=== PATIENT | female | born 1985 | race African-American/Black ===

== ENCOUNTER 2017-01-14 08:24 | Inpatient (IN) | payer MEDICAID ==
[2017-01-14] VITALS (22 sets, daily range): BP systolic 129–149; BP diastolic 52–87; PULSE 76–94; RESP 17–23; TEMP 98.7–99.2; O2SAT 97–100
[~2017-01-14] VITALS: Ht 162.6 cm; Wt 59.3 kg
[~2017-01-14 08:24] MED LIST: BENZ100 PO; CIPR500T4 PO; ZOFR4TAB3 PO
[2017-01-14] MEDS ORDERED: SODIUM CHLOR 0.9% 1000 ML INJ 1,000 ML IV ONE (08:28)
[2017-01-14 08:30] LABS: MEAN CORPUSCULAR HGB CONC 29.3 % (32.0-36.0)
[2017-01-14 08:39] LABS: I-STAT POTASSIUM 3.9 MMOL/L (3.5-4.9); I-STAT SODIUM 141 MMOL/L (138-146)
[2017-01-14 08:41] LABS: AUTOMATED NEUTROPHIL # 2.1 TH/MM3 (1.8-7.7); BASOPHIL # 0.1 TH/MM3 (0-0.2); BASOPHIL % 1.4 % (0.0-2.0); EOSINOPHIL % 1.1 % (0.0-4.0); HEMATOCRIT 23.8 % (35.0-46.0); HEMO FLAGS DIFF FINAL; LYMPH % 29.3 % (9.0-44.0); LYMPHOCYTE # 1.2 TH/MM3 (1.0-4.8); MEAN CELL VOLUME 60.2 FL (80.0-100.0); MEAN CORPUSCULAR HEMOGLOBIN 17.7 PG (27.0-34.0); MONO % 14.4 % (0.0-8.0); NEUT % 53.8 % (16.0-70.0); PLATELET COUNT 753 TH/MM3 (150-450); RED BLOOD COUNT 3.96 MIL/MM3 (4.00-5.30); RED CELL DISTRIBUTION WIDTH 24.8 % (11.6-17.2)
--- NOTE | 2017-01-14 08:41 | RADRPT ---
EXAM DATE/TIME: 01/14/2017 08:31 [facility] COMPARISON: No previous studies available for comparison. INDICATIONS : Stroke alert, right sided weakness and slurred speech. RADIATION DOSE: 29.05 CTDIvol (mGy) This report was to Dr. Chaparro at 08 35. MEDICAL HISTORY : Non-responsive. SURGICAL HISTORY : Non-responsive. ENCOUNTER: Initial ACUITY: 1 day PAIN SCALE: 0/10 LOCATION: cranial TECHNIQUE: Multiple contiguous axial images were obtained of the head. Using automated exposure control and adj ustment of the mA and/or kV according to patient size, radiation dose was kept as low as reasonably a chievable to obtain optimal diagnostic quality images. DICOM format image data is available electro nically for review and comparison. FINDINGS: CEREBRUM: The ventricles are normal for age. No evidence of midline shift, mass lesion, hemorrhage or acute in farction. No extra-axial fluid collections are seen. POSTERIOR FOSSA: The cerebellum and brainstem are intact. The 4th ventricle is midline. The cerebellopontine angle i s unremarkable. EXTRACRANIAL: The visualized portion of the orbits is intact. SKULL: The calvaria is intact. No evidence of skull fracture. CONCLUSION: Negative for acute process. Antione Yan MD FACR on January 14, 2017 at 8:38 Board Certified Radiologist. This report was verified electronically.
--- NOTE | 2017-01-14 08:43 | PD ---
HPI Chief Complaint: stroke alert Time Seen by Provider: 08:28 Travel History International Travel<30 days: No Contact w/Intl Traveler<30days: No Traveled to known affect area: No History of Present Illness HPI 32-year-old female complains of slurred speech and right arm weakness. Patient was last seen normal at 7:30 this morning. EMS was called this morning around 8 :00. Patient complains of slow speech and right arm weakness at that time. Patient states that she has mild aching headache. Patient denies any visual change. Patient denies any neck pain. Patient denies any chest pain or shortness of breath. Patient states that she has some mild discomfort normal abdomen. Patient denies any back pain. Patient denies any recent injury. Patient is not on control pills. Patient denies any recent travel. Patient denies any history of TIA or CVA. Patient denies any history of arrhythmia. Patient states that she smokes marijuana occasionally. Patient denies any alcohol abuse. Patient denies any other illicit drug abuse. PFSH Past Medical History Anemia: Yes (with ) Blood Disorders: No Cardiovascular Problems: No Endocrine: No Gastrointestinal Disorders: No Genitourinary: No Immune Disorder: No Implanted Vascular Access Dvce: No Musculoskeletal: No Neurologic: No Psychiatric: No Reproductive: No Respiratory: No Immunizations Current: Yes : 6 Para: 4 Miscarriage: 1 Past Surgical History Abdominal Surgery: No Cardiac Surgery: No Section: Yes (x3) Ear Surgery: No Endocrine Surgery: No Eye Surgery: No Genitourinary Surgery: No Gynecologic Surgery: Yes (C SECTION X,S 3) Oral Surgery: No Thoracic Surgery: No Other Surgery: Yes Social History Alcohol Use: No Tobacco Use: No Substance Use: No Allergies-Medications (Allergen,Severity, Reaction): Coded Allergies: No Known Allergies (Verified , 11/05/14) Reported Meds & Prescriptions Reported Meds & Active Scripts Active Zofran ODT (Ondansetron HCl) 4 Mg Tab 4 Mg PO Q6HR PRN Tessalon Perles (Benzonatate) 100 Mg Cap 100 Mg PO TID PRN Cipro (Ciprofloxacin HCl) 500 Mg Tab 500 Mg PO BID 7 Days Review of Systems General / Constitutional: No: Fever Eyes: No: Visual changes HENT: No: Headaches Cardiovascular: No: Chest Pain or Discomfort Respiratory: No: Shortness of Breath Gastrointestinal: No: Abdominal Pain Genitourinary: No: Dysuria Musculoskeletal: No: Pain Skin: No Rash Neurologic: Positive: Weakness, Slurred Speech Psychiatric: No: Depression Endocrine: No: Polydipsia Hematologic/Lymphatic: No: Easy Bruising Physical Exam Narrative GENERAL: Well-nourished, well-developed patient. SKIN: Focused skin assessment warm/dry. HEAD: Normocephalic. EYES: No scleral icterus. No injection or drainage. Pupils 3 mm equal reactive. NECK: Supple, trachea midline. No JVD or lymphadenopathy. CARDIOVASCULAR: Regular rate and rhythm without murmurs, gallops, or rubs. RESPIRATORY: Breath sounds equal bilaterally. No accessory muscle use. GASTROINTESTINAL: Abdomen soft, non-tender, nondistended. MUSCULOSKELETAL: No cyanosis, or edema. BACK: Nontender without obvious deformity. No CVA tenderness. Neurologic exam: Patient has slurred speech. Patient has weakness of the right arm. Patient can minimally elevated right arm off the bed. Weak handgrip. Lower extremity strength bilaterally equal. Deep tendon reflexes 1+ and equal. Negative Babinski. Data Data Last Documented VS Vital Signs Date Time Temp Pulse Resp B/P Pulse Ox O2 Delivery O2 Flow Rate FiO2 01/14/17 08:49 19 100 Room Air 01/14/17 08:43 98.7 81 130/80 01/14/17 08:23 3.00 Orders Diet Npo (01/14/17 Breakfast) Activity Bed Rest (01/14/17 ) Electrocardiogram (01/14/17 ) I-Stat Creatinine (01/14/17 08:28) I-Stat Profile (01/14/17 08:28) Prothrombin Time / Inr (Pt) (01/14/17 08:28) Act Partial Throm Time (Ptt) (01/14/17 08:28) Complete Blood Count With Diff (01/14/17 08:28) Fibrinogen (01/14/17 08:28) Creatine Kinase (Cpk) (01/14/17 08:28) Troponin I (01/14/17 08:28) Ua Includes Microscopic (01/14/17 08:28) Drug Screen, Random Urine (01/14/17 08:28) Type And Screen (01/14/17 08:28) Ct Brain W/O Iv Contrast(Rout) (01/14/17 ) Chest, Single Ap (01/14/17 ) Beta Hcg (Quant/Titer) (01/14/17 08:28) Consult Neurology (01/14/17 ) Blood Glucose (01/14/17 08:28) Ecg Monitoring (01/14/17 08:28) Neuro Checks Q2HX12,Q4H (01/14/17 08:28) Nursing Bedside Swallow Assess .ONCE (01/14/17 08:28) Iv Access Insert/Monitor (01/14/17 08:28) NPO (01/14/17 08:28) Oximetry (01/14/17 08:28) Oxygen Administration (01/14/17 08:28) Sodium Chlor 0.9% 1000 Ml Inj (Ns 1000 M (01/14/17 08:28) Resp Oxygen Casper C Titrat 1-4 L (01/14/17 08:28) Cath For Specimen (01/14/17 08:28) Cta Brain W Iv Contrast W 3d (01/14/17 ) Cta Neck W Iv Contrast W 3d (01/14/17 ) (Hub Use Only)Inp Phy Cons/Ref (01/14/17 ) Mri Brain W/O Contrast (01/14/17 08:40) Mra Brain W/O Contrast (Cow) (01/14/17 08:40) Mra Carotids W Contrast (01/14/17 08:40) ^ Call Pharmacy (01/14/17 08:52) Nih Stroke Scale - Nihss .ONCE (01/14/17 08:52) Urinary Catheter Insert/Apply (01/14/17 08:52) Anticoagulant Alert (01/14/17 08:52) ^ Post Infusion Restrictions (01/14/17 08:52) ^ Medication Alert (01/14/17 08:52) Vital Signs (Adult) .As directed (01/14/17 08:52) Notify Dr: Blood Pressure (01/14/17 08:52) ^ Medication Alert (01/14/17 08:52) Alteplase Bolus (Activase Bolus) (01/14/17 09:00) Alteplase Drip (Activase Drip) (01/14/17 09:00) Sodium Chloride 0.9% Inj (Ns Inj) (01/14/17 09:00) Misc Nursing Information (01/14/17 09:00) Resp Oxygen Casper C Titrat 1-4 L (01/14/17 ) Iohexol 350 Inj (Omnipaque 350 Inj) (01/14/17 08:53) Labs Laboratory Tests Test 01/14/17 08:28 White Blood Count 4.0 TH/MM3 Red Blood Count 3.96 MIL/MM3 Hemoglobin 7.0 GM/DL Bedside Hemoglobin 9.2 G/DL Hematocrit 23.8 % Bedside Hematocrit 27.0 % Mean Corpuscular Volume 60.2 FL Mean Corpuscular Hemoglobin 17.7 PG Mean Corpuscular Hemoglobin 29.3 % Concent Red Cell Distribution Width 24.8 % Platelet Count 753 TH/MM3 Mean Platelet Volume 7.1 FL Neutrophils (%) (Auto) 53.8 % Lymphocytes (%) (Auto) 29.3 % Monocytes (%) (Auto) 14.4 % Eosinophils (%) (Auto) 1.1 % Basophils (%) (Auto) 1.4 % Neutrophils # (Auto) 2.1 TH/MM3 Lymphocytes # (Auto) 1.2 TH/MM3 Monocytes # (Auto) 0.6 TH/MM3 Eosinophils # (Auto) 0.0 TH/MM3 Basophils # (Auto) 0.1 TH/MM3 CBC Comment DIFF FINAL Differential Comment Prothrombin Time 11.4 SEC Prothromb Time International 1.0 RATIO Ratio Activated Partial 23.0 SEC Thromboplast Time Fibrinogen 177 mg/dL Bedside Sodium 141 MMOL/L Bedside Potassium 3.9 MMOL/L Bedside Chloride 104 MMOL/L Bedside Blood Urea Nitrogen 6 MG/DL Bedside Creatinine 0.8 MG/DL Bedside Glucose 87 MG/DL MDM Medical Decision Making Medical Screen Exam Complete: Yes Emergency Medical Condition: Yes Interpretation(s) Last Impressions Head CT 01/14/17 0000 Signed Impressions: Service Date/Time: Saturday, January 14, 2017 08:31 - CONCLUSION: Negative for acute process. Antione Yan MD FACR Differential Diagnosis Differential diagnosis including TIA, CVA. Narrative Course 32-year-old female with slurred speech and right arm weakness. Stroke alert was called. I spoke with Dr. Asencio. 8:55 AM. I spoke with Dr. Asencio again. I informed neurologist about the results of CT and CTA. Advised to proceed with TPA. I spoke with the patient about the benefit and risk of TPA including intracranial hemorrhage, bleeding. Patient accepted risk. TPA will be given to the patient. Diagnosis Primary Impression: Acute CVA (cerebrovascular accident) Admitting Information Admitting Physician Requests: Admit Stephen Chaparro MD Jan 14, 2017 08:43
[2017-01-14 08:50] LABS: PROTHROMBIN TIME - PATIENT 11.4 SEC (9.8-11.6)
[2017-01-14] MEDS ORDERED: IOHEXOL 350 MG/ML 10 ML VIAL (for RAD DIAG) IV ONE (08:53)
[2017-01-14] MEDS ORDERED: SODIUM CHLORIDE 0.9% 50 ML BAG IVF ONE (09:00)
[2017-01-14] MEDS ORDERED: MISCELLANEOUS NURSING INFORMATION XX PRN (09:00)
[2017-01-14] MEDS ORDERED: ALTEPLASE DRIP IV ONE (09:00)
[2017-01-14] MEDS ORDERED: ALTEPLASE BOLUS 9 MG/9 ML SYR IV ONE (09:00)
[2017-01-14 09:02] LABS: BETA HCG QUANT LESS THAN 1 MIU/ML (0-5)
[2017-01-14 09:04] LABS: CREATINE KINASE 80 U/L (26-192)
--- NOTE | 2017-01-14 09:08 | RADRPT ---
EXAM DATE/TIME: 01/14/2017 08:36 [facility] COMPARISON: No previous studies available for comparison. INDICATIONS : Stroke alert; right sided weakness and slurred speech. IV CONTRAST: 100 cc Omnipaque 350 (iohexol) IV ; Cumulative dose for multiple exams. RADIATION DOSE: 24.77 CTDIvol (mGy) ; Combined studies MEDICAL HISTORY : None SURGICAL HISTORY : None. ENCOUNTER: Initial ACUITY: 1 day PAIN SCALE: 0/10 LOCATION: cranial TECHNIQUE: Volumetric scanning was performed using a multi-row detector CT scanner. The data was post processed with a variety of visualization algorithms including full volume maximum intensity projection, multi -planar sliding thin slab reformation, curved planar reformation, and surface rendering techniques. Using automated exposure control and adjustment of the mA and/or kV according to patient size, radiat ion dose was kept as low as reasonably achievable to obtain optimal diagnostic quality images. DICO M format image data is available electronically for review and comparison. FINDINGS: There is excellent visualization of the major intracranial arteries out to the second-order branch ve ssels. There is no evidence for aneurysm, vessel truncation or stenosis, and no evidence for vascula r malformation. CONCLUSION: Normal examination. Libardo Reza MD on January 14, 2017 at 9:00 Board Certified Radiologist. This report was verified electronically.
--- NOTE | 2017-01-14 09:08 | RADRPT ---
EXAM DATE/TIME: 01/14/2017 08:41 [facility] COMPARISON: CHEST SINGLE AP, October 20, 2015, 18:54. INDICATIONS : Stroke alert. Right sided weakness and slurred speech. MEDICAL HISTORY : Anemia. SURGICAL HISTORY : section. Blood transfusion. ENCOUNTER: Initial ACUITY: 1 day PAIN SCORE: 0/10 LOCATION: Bilateral chest FINDINGS: A single view of the chest demonstrates the lungs to be symmetrically aerated without evidence of mas s, infiltrate or effusion. The cardiomediastinal contours are unremarkable. Osseous structures are intact. CONCLUSION: No acute disease. Librado Reza MD on January 14, 2017 at 9:07 Board Certified Radiologist. This report was verified electronically.
[2017-01-14] MEDS ORDERED: POTASSIUM PHOSPHATE MONOBASIC 500 MG TAB PO PRN (09:15)
[2017-01-14] MEDS ORDERED: POTASSIUM PHOSPHATE INJ 30 MMOL in SODIUM CHLOR 0.9% 250 ML INJ 250 ML IV PRN (09:15)
[2017-01-14] MEDS ORDERED: SODIUM PHOSPHATE INJ 30 MMOL in SODIUM CHLOR 0.9% 250 ML INJ 240 ML IV PRN (09:15)
[2017-01-14] MEDS ORDERED: DEXTROSE 50% IN WATER 50 ML VIAL(D50) IV PUSH PRN (09:15)
[2017-01-14] MEDS ORDERED: POTASSIUM PHOSPHATE MONOBASIC 500 MG TAB PO/TUBE PRN (09:15)
[2017-01-14] MEDS ORDERED: MAGNESIUM SULFATE INJ 4 GM in SODIUM CHLORIDE 0.9% INJ 92 ML IV PRN (09:15)
[2017-01-14] MEDS ORDERED: MISCELLANEOUS NURSING INFORMATION XX SCH (09:15)
[2017-01-14] MEDS ORDERED: CHLORHEXIDINE GLUCONATE 2 % 1 PACK (2 CLOTHS) TOP PRN (09:15)
[2017-01-14] MEDS ORDERED: MAGNESIUM SULFATE INJ 2 GM in SODIUM CHLORIDE 0.9% INJ 96 ML IV PRN (09:15)
[2017-01-14] MEDS ORDERED: MAGNESIUM OXIDE 400 MG TAB PO PRN (09:15)
[2017-01-14] MEDS ORDERED: ONDANSETRON HCL 4 MG/2 ML VIAL IV PRN (09:15)
[2017-01-14] MEDS ORDERED: POTASSIUM CHLOR 20 MEQ PREMIX 100 ML IV PRN ×2 (09:15)
[2017-01-14] MEDS ORDERED: POTASSIUM CHLOR 40 MEQ PREMIX 100 ML IV PRN ×2 (09:15)
[2017-01-14] MEDS ORDERED: ACETAMINOPHEN 325 MG TAB PO PRN (09:15)
--- NOTE | 2017-01-14 09:21 | RADRPT ---
EXAM DATE/TIME: 01/14/2017 08:36 [facility] COMPARISON: No previous studies available for comparison. INDICATIONS : Stroke alert; right sided weakness and slurred speech. IV CONTRAST: 100 cc Omnipaque 350 (iohexol) IV ; Cumulative dose for multiple exams. RADIATION DOSE: 24.77 CTDIvol (mGy) ; Combined studies MEDICAL HISTORY : None SURGICAL HISTORY : None. ENCOUNTER: Initial ACUITY: 1 day PAIN SCALE: 0/10 LOCATION: Bilateral neck Elevated flow velocities and ICA/CCA ratios have been found to correlate with increased degrees of vessel stenosis, calculated as percentage of diameter relative to a normal segment of distal ICA/CCA. TECHNIQUE: Volumetric scanning was performed using a multirow detector CT scanner. The data was post processed with a variety of visualization algorithms including full-volume maximum intensity projection, multip lanar sliding thin-slab reformation, curved-planar reformation, and surface-rendering techniques. Us ing automated exposure control and adjustment of the mA and/or kV according to patient size, radiatio n dose was kept as low as reasonably achievable to obtain optimal diagnostic quality images. DICOM f ormat image data is available electronically for review and comparison. FINDINGS: AORTIC ARCH: There is a three-vessel origin of the great vessels from the aorta. No evidence of ostial narrowing. RIGHT CAROTID: The common carotid artery is intact. The carotid bulb has a normal configuration without ulceration o r narrowing. The internal carotid artery lumen is smooth without stenosis. The external carotid marcus ry is intact. LEFT CAROTID: There is a tiny hypodensity/filling defect along the posterior aspect of the proximal left internal c arotid artery, conspicuous only because of the otherwise completely normal, widely patent appearance of the vessels. Possibility of a small focus of plaque or wall adherent thrombus is not excluded and may potentially bear upon the patient's current clinical symptoms. VERTEBRALS: The vertebral arteries have a symmetric diameter. No stenotic lesions are seen. CONCLUSION: Tiny abnormality involving the posterior wall of the proximal left internal carotid artery as above. Otherwise normal. Librado Reza MD on January 14, 2017 at 9:12 Board Certified Radiologist. This report was verified electronically.
--- NOTE | 2017-01-14 10:01 | MB ---
cc: BETSY WHITAKER M.D. DATE OF CONSULTATION: 01/14/2017 HISTORY OF PRESENT ILLNESS The patient is seen in neurological consultation. She came in as a Stroke Alert. I spoke to Dr. Chaparro on a couple of occasions. I saw the patient in the emergency room about 15 minutes ago. She is a 32-year-old without any chronic medical problems, taking no medications. She seemed to be doing well at 7:30 this morning and then a little bit later she had a fall going to the bathroom and was observed to have slurring of her speech and right arm weakness. There was no apparent head trauma, no loss of consciousness. No history of alcohol or drug abuse. She he is taking no medications, although there is a list of active medication, Zofran, Tessalon Perles and Cipro. NEUROLOGICAL EXAMINATION Examination showed the patient to be alert, pleasant and oriented. Her speech is slurred with some difficulty expressing herself and this is relatively mild. There is a hint of some right facial weakness. The tongue protrudes well. Ocular movements and visual perez full. 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 There is mild right lower extremity weakness on the bedside exam. Reflexes are 1-2+ throughout and plantar response is flexor. IMAGING Preliminary results of CT brain and CTA were negative. ASSESSMENT AND PLAN She is an ideal candidate for TPA. I have looked at the laboratory data. As discussed with Dr. Chaparro, were just waiting for the TPA infusion to be started. Her hemoglobin is 7.0 and platelets 753. White count is 4.0, hematocrit 23.8. She evidently needs hydration and evaluation for anemia. Will be sure we have an urine toxicology as well. Her glucose was 87. I will follow the neurological course. Thank you for asking us to assist in her care. Betsy Whitaker MD OFC/BT /9:28 AM /9:51 AM
[2017-01-14 10:17] LABS: BLOOD, URINE NEG (NEG); GLUCOSE,URINE NEG (NEG); GRANULAR CAST, URINE 2 /lpf; HYALINE CAST, URINE 3 /lpf (RARE); KETONE, URINE NEG (NEG); NITRITE,URINE NEG (NEG); SQUAMOUS EPITHELIAL CELL URINE 1 /hpf (0-5); URINE COLOR LIGHT-YELLOW (YELLW/STRAW)
[2017-01-14 10:20] LABS: AMPHETAMINE, URINE NEG (NEG); BARBITURATES, URINE NEG (NEG); COCAINE, URINE NEG (NEG)
[2017-01-14 10:43] LABS: ACETAMINOPHEN LESS THAN 2.0 MCG/ML (10.0-30.0)
[2017-01-14] MEDS: SODIUM CHLOR 0.9% 1000 ML INJ 1,000 ML IV SCH ×2 (11:00→12:30)
[2017-01-14] MEDS: INSULIN NovoLIN REGULAR SUPPLEMENTAL SCALE SQ SCH ×3 (11:00→20:41)
--- NOTE | 2017-01-14 12:08 | RADRPT ---
EXAM DATE/TIME: 01/14/2017 11:31 [facility] COMPARISON: No previous studies available for comparison. INDICATIONS : Slurred speech with right sided weakness. Post TPA. MEDICAL HISTORY : None. SURGICAL HISTORY : section. Hernia ENCOUNTER: Initial ACUITY: 1 day PAIN SCORE: 0/10 LOCATION: cranial TECHNIQUE: Multiplanar, multisequence MRI of the brain was performed without contrast. FINDINGS: There are small areas of restricted diffusion in the high convexity posterior left frontal cortex and in the low convexity left orbitofrontal cortex which are presumably small areas of subacute cortical infarction. The contralateral right hemisphere is unremarkable. There is no evidence of intracranial hemorrhage. There is no evidence of brain mass. Extracranial structures are intact and unremarkable. CONCLUSION: 2 small separate areas of focal left frontal cortical stroke.. Librado Reza MD on January 14, 2017 at 12:03 Board Certified Radiologist. This report was verified electronically.
--- NOTE | 2017-01-14 12:20 | RADRPT ---
EXAM DATE/TIME: 01/14/2017 11:31 [facility] COMPARISON: CTA BRAIN W 3D RECON, January 14, 2017, 8:36. INDICATIONS : Slurred speech with right sided weakness. Post TPA. MEDICAL HISTORY : None. SURGICAL HISTORY : section. Hernia ENCOUNTER: Initial ACUITY: 1 day PAIN SCORE: 0/10 LOCATION: cranial Please note a normal MRA of the brain does not entirely exclude the possibility of a small aneurysm, nor the possibility of distal intracranial vessel disease. TECHNIQUE: 3D time of flight MRA was performed. Source images, multiplanar STS MIP, and 3D volume MIP reconstru ctions were reviewed. FINDINGS: There is excellent visualization of the major intracranial arteries out to the second-order branch ve ssels. There is no evidence for aneurysm, vessel truncation or stenosis, and no evidence for vascula r malformation. [place] appears to be intact and complete. CONCLUSION: Negative exam. Ramone Peterson MD on January 14, 2017 at 12:15 Board Certified Radiologist. This report was verified electronically.
--- NOTE | 2017-01-14 12:22 | RADRPT ---
EXAM DATE/TIME: 01/14/2017 11:31 [facility] COMPARISON: No previous studies available for comparison. INDICATIONS : Slurred speech with right sided weakness. Post TPA. CONTRAST: 20 cc Omniscan (gadodiamide) IV MEDICAL HISTORY : None. SURGICAL HISTORY : section. Hernia ENCOUNTER: Initial ACUITY: 1 day PAIN SCORE: 0/10 LOCATION: cranial Percent stenosis is calculated using the diameter of the stenotic region over the diameter of the nor mal distal internal carotid artery. TECHNIQUE: Bolus infused MRA of the extracranial circulation was performed using a neurovascular coil. Post pro cessing was performed including rotating subvolume maximum intensity projections of each carotid marcus ry, rotating full volume maximum intensity projections of both carotid arteries, sagittal and coronal sliding thin slab reformations of each carotid artery, and left oblique sliding thin slab reformatio n through the aortic arch to include the origin of the arch branch vessels. FINDINGS: AORTIC ARCH: There is a three vessel origin of the great vessels from the aorta. No evidence of ostial narrowing. RIGHT CAROTID: The common carotid artery is intact. The carotid bulb has a normal configuration without ulceration or narrowing. The internal carotid artery lumen is smooth without stenosis. The external carotid ar jeferson is intact. LEFT CAROTID: The common carotid artery is intact. The carotid bulb has a normal configuration without ulceration or narrowing. The internal carotid artery lumen is smooth without stenosis. The external carotid ar jeferson is intact. VERTEBRALS: The vertebral arteries have a symmetric diameter. No stenotic lesions are seen. CONCLUSION: Negative exam. Cervical vessels are all patent. Ramone Peterson MD on January 14, 2017 at 12:19 Board Certified Radiologist. This report was verified electronically.
[2017-01-14] MEDS ORDERED: GADODIAMIDE PF 287 MG/ML 20 ML VIAL (for RAD MRI) IV ONE (13:06)
--- NOTE | 2017-01-14 16:24 | EKG ---
Date Performed: 01/14/2017 Time Performed: 09:04:10 PTAGE: 32 years EKG: Sinus rhythm NORMAL ECG NO PREVIOUS TRACING DOCTOR: Ezekiel Zapien Interpretating Date/Time 01/14/2017 16:20:57
[2017-01-14 16:27] LABS: REVIEW FLAG FINAL
[2017-01-14] MEDS: DOCUSATE SODIUM 50 MG/SENNA 8.6 MG TAB PO SCH (20:28)
--- NOTE | 2017-01-14 23:31 | HHI.HP ---
HPI Service Critical Care Medicine Primary Care Physician Unknown Admission Diagnosis acute CVA Diagnosis: Chief Complaint: weakness Travel History International Travel<30 Days: No Contact w/Intl Traveler <30 Da: No Traveled to Known Affected Are: No History of Present Illness 32yF who presented with slurred speech and right arm weakness. within TPA window. seen and examined by neurology and given TPA. when I evaluated patient in ICU, no current complaints. weakness has resolved. ROS negative unless otherwise noted. does have history of anemia requiring multiple prior transfusions. Review of Systems Constitutional: DENIES: Diaphoretic episodes, Fatigue, Fever, Weight gain, Weight loss, Chills, Dizziness, Change in appetite, Night Sweats Endocrine: DENIES: Abnorml menstrual pattern, Heat/cold intolerance, Polydipsia , Polyuria, Polyphagia Eyes: DENIES: Blurred vision, Diplopia, Eye inflammation, Eye pain, Vision loss , Photosensitivity, Double Vision Ears, nose, mouth, throat: DENIES: Tinnitus, Hearing loss, Vertigo, Nasal discharge, Oral lesions, Throat pain, Hoarseness, Ear Pain, Running Nose, Epistaxis, Sinus Pain, Toothache, Odynophagia Respiratory: DENIES: Apneas, Cough, Snoring, Wheezing, Hemoptysis, Sputum production, Shortness of breath Cardiovascular: DENIES: Chest pain, Palpitations, Syncope, Dyspnea on Exertion , PND, Lower Extremity Edema, Orthopnea, Claudication Gastrointestinal: DENIES: Abdominal pain, Black stools, Bloody stools, Constipation, Diarrhea, Nausea, Vomiting, Difficulty Swallowing, Anorexia Genitourinary: DENIES: Abnormal vaginal bleeding, Dysmenorrhea, Dyspareunia, Sexual dysfunction, Urinary frequency, Urinary incontinence, Urgency, Hematuria , Dysuria, Nocturia, Vaginal discharge Musculoskeletal: DENIES: Joint pain, Muscle aches, Stiffness, Joint Swelling, Back pain, Neck pain Integumentary: DENIES: Abnormal pigmentation, Pruritus, Rash, Nail changes, Breast masses, Breast skin changes, Nipple discharge Hematologic/lymphatic: DENIES: Bruising, Lymphadenopathy Immunologic/allergic: DENIES: Eczema, Urticaria Neurologic: DENIES: Abnormal gait, Headache, Localized weakness, Paresthesias, Seizures, Speech Problems, Tremor, Poor Balance Psychiatric: DENIES: Anxiety, Confusion, Mood changes, Depression, Hallucinations, Agitation, Suicidal Ideation, Homicidal Ideation, Delusions Past Family Social History Allergies: Coded Allergies: No Known Allergies (Verified , 01/14/17) Past Medical History Anemia requiring transfusions on past admissions Past Surgical History cesarian delivery x 3 Reported Medications Zofran ODT (Ondansetron HCl) 4 Mg Tab 4 Mg PO Q6HR PRN Active Ordered Medications See MAR Family History no family history of early strokes Social History denies tob, etoh, doa. Physical Exam Vital Signs Vital Signs Date Time Temp Pulse Resp B/P Pulse Ox O2 Delivery O2 Flow Rate FiO2 01/14/17 22:00 77 01/14/17 20:52 100 21 01/14/17 20:00 88 01/14/17 20:00 98.9 88 23 145/82 100 01/14/17 19:00 100 Room Air 01/14/17 18:25 99.0 88 20 143/87 100 01/14/17 18:00 99.1 88 18 129/83 100 01/14/17 18:00 92 01/14/17 16:00 94 01/14/17 16:00 99.2 77 20 130/77 100 01/14/17 14:23 100 21 01/14/17 14:00 79 01/14/17 12:30 79 01/14/17 12:00 98.9 82 17 138/81 100 01/14/17 11:39 85 18 149/79 99 Room Air 01/14/17 11:24 79 17 137/71 100 Room Air 01/14/17 11:09 82 17 136/74 100 Room Air 01/14/17 10:54 81 18 149/76 100 Room Air 01/14/17 10:39 82 18 140/79 100 Room Air 01/14/17 10:24 79 17 137/74 100 Room Air 01/14/17 10:09 82 18 141/69 100 Room Air 01/14/17 09:54 76 18 143/70 100 Room Air 01/14/17 09:39 89 18 140/52 100 Room Air 01/14/17 08:49 19 100 Room Air 01/14/17 08:49 100 Room Air 01/14/17 08:43 98.7 81 19 130/80 100 01/14/17 08:23 97 3.00 01/14/17 08:23 97 Nasal Cannula 3.00 Physical Exam GENERAL: Young female, lying in bed, no acute distress HEENT: Normocephalic. Atraumatic. Pupils equal, round, reactive, conjugate. Mucous membranes are moist NECK: Trachea is midline. There is no JVD. CHEST: Unlabored, equal chest rise CARDIOVASCULAR: Rate, regular rhythm. Sinus by telemetry ABDOMEN: Soft, nontender, nondistended. No guarding. MUSCULOSKELETAL: Pulses 2+. No peripheral edema. NEUROLOGICAL: RASS 0. GCS 15. No gross focal motor sensory deficits. Cranial nerves II through XII grossly intact Laboratory Laboratory Tests Test 01/14/17 01/14/17 01/14/17 01/14/17 08:28 09:05 13:49 16:48 White Blood Count 4.0 Red Blood Count 3.96 Hemoglobin 7.0 6.7 Bedside Hemoglobin 9.2 Hematocrit 23.8 23.0 Bedside Hematocrit 27.0 Mean Corpuscular Volume 60.2 Mean Corpuscular Hemoglobin 17.7 Mean Corpuscular Hemoglobin 29.3 Concent Red Cell Distribution Width 24.8 Platelet Count 753 Mean Platelet Volume 7.1 Neutrophils (%) (Auto) 53.8 Lymphocytes (%) (Auto) 29.3 Monocytes (%) (Auto) 14.4 Eosinophils (%) (Auto) 1.1 Basophils (%) (Auto) 1.4 Neutrophils # (Auto) 2.1 Lymphocytes # (Auto) 1.2 Monocytes # (Auto) 0.6 Eosinophils # (Auto) 0.0 Basophils # (Auto) 0.1 CBC Comment DIFF FINAL Differential Comment Prothrombin Time 11.4 Prothromb Time International 1.0 Ratio Activated Partial 23.0 Thromboplast Time Fibrinogen 177 Bedside Sodium 141 Bedside Potassium 3.9 Bedside Chloride 104 Bedside Blood Urea Nitrogen 6 Bedside Creatinine 0.8 Bedside Glucose 87 Total Creatine Kinase 80 Troponin I LESS THAN 0.02 Human Chorionic Gonadotropin, LESS THAN 1 Quant Salicylates Level 2.8 Acetaminophen Level LESS THAN 2.0 Ethyl Alcohol Level LESS THAN 3 Blood Type AB POSITIVE AB POSITIVE Antibody Screen NEGATIVE Urine Color LIGHT-YELLOW Urine Turbidity CLEAR Urine pH 7.0 Urine Specific [place] 1.050 Urine Protein NEG Urine Glucose (UA) NEG Urine Ketones NEG Urine Occult Blood NEG Urine Nitrite NEG Urine Bilirubin NEG Urine Urobilinogen LESS THAN 2.0 Urine Leukocyte Esterase NEG Urine RBC 1 Urine WBC 1 Urine Squamous Epithelial 1 Cells Urine Hyaline Casts 3 Urine Granular Casts 2 Urine Opiates Screen NEG Urine Barbiturates Screen NEG Urine Amphetamines Screen NEG Urine Benzodiazepines Screen NEG Urine Cocaine Screen NEG Urine Cannabinoids Screen POS Crossmatch Leukocyte-Reduced Red Blood Cells Blood Bank Comment Test 01/14/17 17:06 Nasal Screen MRSA (PCR) MRSA NOT DETECTED Result Diagram: 01/14/17 1349 Imaging Last Impressions Neck Magnetic Resonance Angiography 01/14/17 0840 Signed Impressions: Service Date/Time: Saturday, January 14, 2017 11:31 - CONCLUSION: Negative exam. Cervical vessels are all patent. Ramone Peterson MD Head Magnetic Resonance Angiography 01/14/17 0840 Signed Impressions: Service Date/Time: Saturday, January 14, 2017 11:31 - CONCLUSION: Negative exam. Ramone Peterson MD Brain MRI 01/14/17 0840 Signed Impressions: Service Date/Time: Saturday, January 14, 2017 11:31 - CONCLUSION: 2 small separate areas of focal left frontal cortical stroke.. Librado Reza MD Neck CTA 01/14/17 0000 Signed Impressions: Service Date/Time: Saturday, January 14, 2017 08:36 - CONCLUSION: Tiny abnormality involving the posterior wall of the proximal left internal carotid artery as above. Otherwise normal. Librado Reza MD Head CTA 01/14/17 0000 Signed Impressions: Service Date/Time: Saturday, January 14, 2017 08:36 - CONCLUSION: Normal examination. Librado Reza MD Head CT 01/14/17 0000 Signed Impressions: Service Date/Time: Saturday, January 14, 2017 08:31 - CONCLUSION: Negative for acute process. Antione Yan MD FACR Chest X-Ray 01/14/17 0000 Signed Impressions: Service Date/Time: Saturday, January 14, 2017 08:41 - CONCLUSION: No acute disease. Librado Reza MD Assessment and Plan Assessment and Plan Assessment: 32-year-old female with right-sided weakness and facial droop concerning for CVA, now s/p TPA. symptoms have resolved. will watch in ICU carefully. post-TPA ct head tomorrow. right-sided weakness -- s/p TPA -- 24h post ct head -- 2d echo, lipids -- asa tomorrow -- cta head/neck -- neuro consult Anemia -- 2 units prbc -- trend hgb -- heme consult bedside swallow and advance diet bedrest until after TPA remain in ICU x 24h. Rodolfo Dixon MD Jan 14, 2017 23:31
[2017-01-15] VITALS (12 sets, daily range): BP systolic 116–159; BP diastolic 55–82; PULSE 68–97; RESP 16–30; TEMP 98.2–99; O2SAT 98–100
[2017-01-15] MEDS: INSULIN NovoLIN REGULAR SUPPLEMENTAL SCALE SQ SCH ×4 (03:00→11:17)
[2017-01-15] MEDS: CHLORHEXIDINE GLUCONATE 2 % 1 PACK (2 CLOTHS) TOP SCH (03:46)
[2017-01-15 07:57] LABS: HEMATOCRIT 24.1 % (35.0-46.0); MEAN CELL VOLUME 66.7 FL (80.0-100.0); MEAN CORPUSCULAR HEMOGLOBIN 20.5 PG (27.0-34.0); MEAN CORPUSCULAR HGB CONC 30.7 % (32.0-36.0); PLATELET COUNT 531 TH/MM3 (150-450); RED BLOOD COUNT 3.62 MIL/MM3 (4.00-5.30); RED CELL DISTRIBUTION WIDTH 30.6 % (11.6-17.2)
[2017-01-15 07:58] LABS: REVIEW FLAG FINAL
[2017-01-15] MEDS: DOCUSATE SODIUM 50 MG/SENNA 8.6 MG TAB PO SCH ×2 (09:00→21:00)
--- NOTE | 2017-01-15 09:42 | RADRPT ---
EXAM DATE/TIME: 01/15/2017 09:32 [facility] COMPARISON: MRI BRAIN W/O CONTRAST, January 14, 2017, 11:31. CT BRAIN W/O CONTRAST, January 14, 2017, 8:31. INDICATIONS : Post TPA, stroke alert yesterday RADIATION DOSE: 27.73 CTDIvol (mGy) MEDICAL HISTORY : None SURGICAL HISTORY : None. ENCOUNTER: Subsequent ACUITY: 2 days PAIN SCALE: 0/10 LOCATION: cranial TECHNIQUE: Multiple contiguous axial images were obtained of the head. Using automated exposure control and adj ustment of the mA and/or kV according to patient size, radiation dose was kept as low as reasonably a chievable to obtain optimal diagnostic quality images. DICOM format image data is available electro nically for review and comparison. FINDINGS: CEREBRUM: The ventricles are normal for age. No evidence of midline shift, mass lesion, hemorrhage or acute in farction. No extra-axial fluid collections are seen. POSTERIOR FOSSA: The cerebellum and brainstem are intact. The 4th ventricle is midline. The cerebellopontine angle i s unremarkable. EXTRACRANIAL: The visualized portion of the orbits is intact. SKULL: The calvaria is intact. No evidence of skull fracture. CONCLUSION: Stable, unremarkable brain CT appearance Librado Reza MD on January 15, 2017 at 9:39 Board Certified Radiologist. This report was verified electronically.
[2017-01-15] MEDS: ASPIRIN 325 MG TAB PO SCH (10:34)
--- NOTE | 2017-01-15 10:38 | HHI.CCPN ---
Subjective Remarks/Hospital Course Hospital Course: 32yF who presented with slurred speech and right arm weakness. within TPA window. seen and examined by neurology and given TPA. when I evaluated patient in ICU, no current complaints. weakness has resolved. ROS negative unless otherwise noted. does have history of anemia requiring multiple prior transfusions. Subjective: 01/15: doing well. remains neuro intact. repeat imaging without evidence of head bleed. stable for transfer to floor. no complaints. Objective Vital Signs Date Time Temp Pulse Resp B/P Pulse Ox O2 Delivery O2 Flow Rate FiO2 01/15/17 10:00 80 01/15/17 08:00 98.8 16 131/81 100 01/15/17 07:00 Room Air 01/14/17 20:52 21 01/14/17 08:23 3.00 Intake and Output 01/14/17 01/14/17 01/15/17 08:00 16:00 00:00 Intake Total 227 ml 333 ml Output Total 550 ml 525 ml Balance -323 ml -192 ml Result Diagram: 01/15/1733 Imaging Last Impressions Neck Magnetic Resonance Angiography 01/14/1740 Signed Impressions: Service Date/Time: Saturday, January 14, 2017 11:31 - CONCLUSION: Negative exam. Cervical vessels are all patent. Ramone Peterson MD Head Magnetic Resonance Angiography 01/14/1740 Signed Impressions: Service Date/Time: Saturday, January 14, 2017 11:31 - CONCLUSION: Negative exam. Ramone Peterson MD Brain MRI 01/14/1740 Signed Impressions: Service Date/Time: Saturday, January 14, 2017 11:31 - CONCLUSION: 2 small separate areas of focal left frontal cortical stroke.. Librado Reza MD Neck CTA 01/14/17 0000 Signed Impressions: Service Date/Time: Saturday, January 14, 2017 08:36 - CONCLUSION: Tiny abnormality involving the posterior wall of the proximal left internal carotid artery as above. Otherwise normal. Librado Reza MD Head CTA 01/14/17 0000 Signed Impressions: Service Date/Time: Saturday, January 14, 2017 08:36 - CONCLUSION: Normal examination. Librado Reza MD Head CT 01/14/17 0000 Signed Impressions: Service Date/Time: Saturday, January 14, 2017 08:31 - CONCLUSION: Negative for acute process. Antione Yan MD FACR Chest X-Ray 01/14/17 0000 Signed Impressions: Service Date/Time: Saturday, January 14, 2017 08:41 - CONCLUSION: No acute disease. Librado Reza MD Objective Remarks GENERAL: Young female, lying in bed, no acute distress HEENT: Normocephalic. Atraumatic. Pupils equal, round, reactive, conjugate. Mucous membranes are moist NECK: Trachea is midline. There is no JVD. CHEST: Unlabored, equal chest rise CARDIOVASCULAR: Rate, regular rhythm. Sinus by telemetry ABDOMEN: Soft, nontender, nondistended. No guarding. MUSCULOSKELETAL: Pulses 2+. No peripheral edema. NEUROLOGICAL: RASS 0. GCS 15. No gross focal motor sensory deficits. Cranial nerves II through XII grossly intact A/P Assessment and Plan Assessment: 32-year-old female with right-sided weakness and facial droop concerning for CVA, now s/p TPA. symptoms have resolved. stable x 24h. will transfer out of ICU with hospitalist service following. right-sided weakness- resolved. -- s/p TPA -- 24h post ct head: negative. -- 2d echo, lipids -- asa today -- neuro consult Anemia- chronic, unknown type. -- s/p 2 units prbc -- trend hgb, recheck h&h this afternoon -- heme consult bedside swallow and advance diet Rodolfo Dixon MD Jan 15, 2017 10:38
--- NOTE | 2017-01-15 12:30 | ECHRPT ---
Indication: cva/tia CONCLUSIONS The left ventricular systolic function is low normal with an estimated ejection fraction in the rang e of 50- 55%. Normal left ventricular size. Wall thickness is normal. Mild mitral valve regurgitation. Trace aortic valve regurgitation. No aortic valve stenosis. There is mild tricuspid valve regurgitation. The estimated pulmonary arterial pressure is 30__ mmHg. The pulmonary valve is not well visualized. BP: / HR: Rhythm: MEASUREMENTS (Male / Female) Normal Values Technical Quality:Good 2D ECHO LV Diastolic Diameter PLAX 4.5 cm 4.2 - 5.9 / 3.9 - 5.3 cm LV Systolic Diameter PLAX 3.4 cm IVS Diastolic Thickness 1.1 cm 0.6 - 1.0 / 0.6 - 0.9 cm LVPW Diastolic Thickness 0.8 cm 0.6 - 1.0 / 0.6 - 0.9 cm LV Relative Wall Thickness 0.4 RV Internal Dim ED PLAX 2.4 cm M-MODE Aortic Root Diameter MM 2.9 cm LA Systolic Diameter MM 3.4 cm LA Ao Ratio MM 1.2 AV Cusp Separation MM 1.9 cm DOPPLER Mitral E Point Velocity 103.0 cm/s Mitral A Point Velocity 82.9 cm/s Mitral E to A Ratio 1.2 LV E' Lateral Velocity 13.4 cm/s Mitral E to LV E' Lateral Ratio 7.7 LV E' Septal Velocity 8.1 cm/s Mitral E to LV E' Septal Ratio 12.7 TR Peak Velocity 274.0 cm/s TR Peak Gradient 30.0 mmHg FINDINGS LEFT VENTRICLE The left ventricular systolic function is low normal with an estimated ejection fraction in the rang e of 50- 55%. Normal left ventricular size. Wall thickness is normal. RIGHT VENTRICLE Normal right ventricular size and systolic function. LEFT ATRIUM The left atrial size is normal. RIGHT ATRIUM The right atrial size is normal. ATRIAL SEPTUM Normal atrial septal thickness without atrial level shunting by limited color doppler interrogation. AORTA The aortic root and proximal ascending aorta are normal in size on limited imaging. MITRAL VALVE Structurally normal mitral valve. Mild mitral valve regurgitation. AORTIC VALVE Trileaflet aortic valve. Trace aortic valve regurgitation. No aortic valve stenosis. TRICUSPID VALVE Structurally normal tricuspid valve. There is mild tricuspid valve regurgitation. The estimated pulmonary arterial pressure is 30__ mmHg. PULMONARY VALVE The pulmonary valve is not well visualized. VESSELS The inferior vena cava is normal in size. PERICARDIUM No pericardial effusion. Buster Zuluaga MD, FACC (Electronically Signed) Final Date:15 January 2017 12:28
[2017-01-15 14:23] LABS: AUTOMATED NEUTROPHIL # 5.5 TH/MM3 (1.8-7.7); BASOPHIL # 0.1 TH/MM3 (0-0.2); BASOPHIL % 0.6 % (0.0-2.0); EOSINOPHIL % 0.5 % (0.0-4.0); LYMPH % 19.9 % (9.0-44.0); LYMPHOCYTE # 1.6 TH/MM3 (1.0-4.8); MEAN CORPUSCULAR HEMOGLOBIN 20.4 PG (27.0-34.0); MONO % 8.2 % (0.0-8.0); NEUT % 70.8 % (16.0-70.0); PLATELET COUNT 743 TH/MM3 (150-450); RED BLOOD COUNT 5.16 MIL/MM3 (4.00-5.30); RED CELL DISTRIBUTION WIDTH 31.2 % (11.6-17.2); WHITE BLOOD COUNT 7.8 TH/MM3 (4.0-11.0)
[2017-01-15 14:24] LABS: HEMO FLAGS AUTO DIFF
[2017-01-15 14:49] LABS: OVALOCYTES 2+ (NORMAL); PLATELET ESTIMATE SMEAR HIGH (NORMAL); PLATELET MORPHOLOGY NORMAL (NORMAL); SCAN/DIFF AUTO DIFF CONFIRMED
[2017-01-15 14:52] LABS: ANION GAP 9 MEQ/L (5-15); BICARBONATE 23.7 MEQ/L (21.0-32.0); BLOOD UREA NITROGEN 5 MG/DL (7-18); CHLORIDE 102 MEQ/L (98-107); GLOMERULAR FILTRATION RATE 85 ML/MIN (>89); POTASSIUM 3.6 MEQ/L (3.5-5.1); SODIUM (NA) 135 MEQ/L (136-145)
[2017-01-15 14:55] LABS: HDL CHOLESTEROL 64.7 MG/DL (40.0-60.0); LDL CHOLESTEROL 86 MG/DL (0-99)
[2017-01-15 17:46] LABS: FERRITIN 16 NG/ML (8-252); TRANSFERRIN IRON PROFILE 511 MG/DL (200-360)
--- NOTE | 2017-01-15 19:32 | HHI.PR ---
Review/Management Daily Summary 01/15 much improved bedside exam normal pending hypercoag profile asa and start statin consider jail heart monito/loop recorder to look for a fib office f/u in 2 weeks to follow hypercoag studies Subjective Subjective Comments No acute events reported No headache No chest pain No dyspnea Active Medications Current Medications Medications (Trade) Dose Ordered Sig/Elio Route Start Time Stop Time Status Last Admin (Tylenol) 650 mg Q6H PRN PO 01/14/17 09:15 (Zofran Inj) 4 mg Q6H PRN IV 01/14/17 09:15 Miscellaneous Information 1 Q361D XX 01/14/17 09:15 (Chlorhexidine 2% Cloth) 3 pack Taper DAILY@04 TOP 01/15/17 04:00 01/11/18 03:59 01/15/17 03:46 (Chlorhexidine 2% Cloth) 3 pack UNSCH PRN TOP 01/14/17 09:15 (Zuleyma-Colace) 1 tab BID PO 01/14/17 21:00 (Aspirin) 325 mg DAILY PO 01/15/17 10:34 01/15/17 10:34 Allergies Allergies Coded Allergies No Known Allergies (Verified01/14/17) Exam I&O / VS 01/14/17 01/14/17 01/15/17 15:00 23:00 07:00 Intake Total 227 ml 333 ml 626 ml Output Total 550 ml 525 ml 425 ml Balance -323 ml -192 ml 201 ml Intake Oral 100 ml 240 ml 120 ml IV Total 127 ml 93 ml 506 ml Output Urine Total 550 ml 525 ml 425 ml Vital Signs Date Time Temp Pulse Resp B/P Pulse Ox O2 Delivery O2 Flow Rate FiO2 01/15/17 17:45 98 21 01/15/17 16:00 98.2 97 16 124/55 98 01/15/17 12:20 98.2 77 16 159/66 100 01/15/17 10:00 80 01/15/17 08:00 77 01/15/17 08:00 98.8 70 16 131/81 100 01/15/17 07:00 99 Room Air 01/15/17 06:00 76 01/15/17 04:00 68 01/15/17 04:00 98.8 68 20 135/77 100 01/15/17 02:00 68 01/15/17 00:50 98.8 74 20 143/78 100 01/15/17 00:35 99.0 87 23 118/82 100 01/15/17 00:00 99.0 78 30 116/72 100 01/15/17 00:00 78 01/14/17 22:00 77 01/14/17 20:52 100 21 01/14/17 20:00 88 01/14/17 20:00 98.9 88 23 145/82 100 Objective Radiology Results Last [address] 01/15/1730 Signed Impressions: Service Date/Time: Sunday, January 15, 2017 09:32 - CONCLUSION: Stable, unremarkable brain CT appearance Librado Reza MD Neck Magnetic Resonance Angiography 01/14/1740 Signed Impressions: Service Date/Time: Saturday, January 14, 2017 11:31 - CONCLUSION: Negative exam. Cervical vessels are all patent. Ramone Peterson MD Head Magnetic Resonance Angiography 01/14/17839 Signed Impressions: Service Date/Time: Saturday, January 14, 2017 11:31 - CONCLUSION: Negative exam. Ramone Peterson MD Brain MRI 01/14/1740 Signed Impressions: Service Date/Time: Saturday, January 14, 2017 11:31 - CONCLUSION: 2 small separate areas of focal left frontal cortical stroke.. Librado Reza MD Neck CTA 01/14/17 0000 Signed Impressions: Service Date/Time: Saturday, January 14, 2017 08:36 - CONCLUSION: Tiny abnormality involving the posterior wall of the proximal left internal carotid artery as above. Otherwise normal. Librado Reza MD Head CTA 01/14/17 0000 Signed Impressions: Service Date/Time: Saturday, January 14, 2017 08:36 - CONCLUSION: Normal examination. Librado Reza MD Head CT 01/14/17 0000 Signed Impressions: Service Date/Time: Saturday, January 14, 2017 08:31 - CONCLUSION: Negative for acute process. Antione Yan MD FACR Chest X-Ray 01/14/17 0000 Signed Impressions: Service Date/Time: Saturday, January 14, 2017 08:41 - CONCLUSION: No acute disease. Librado Reza MD Micro and Labs Laboratory Tests Test 01/14/17 01/15/17 01/15/17 23:18 07:33 13:41 Blood Type AB POSITIVE Crossmatch Leukocyte-Reduced Red Blood Cells Blood Bank Comment White Blood Count 5.0 7.8 Red Blood Count 3.62 5.16 Hemoglobin 7.4 10.5 Hematocrit 24.1 34.0 Mean Corpuscular Volume 66.7 66.0 Mean Corpuscular Hemoglobin 20.5 20.4 Mean Corpuscular Hemoglobin 30.7 31.0 Concent Red Cell Distribution Width 30.6 31.2 Platelet Count 531 743 Mean Platelet Volume 7.2 8.1 Neutrophils (%) (Auto) 70.8 Lymphocytes (%) (Auto) 19.9 Monocytes (%) (Auto) 8.2 Eosinophils (%) (Auto) 0.5 Basophils (%) (Auto) 0.6 Neutrophils # (Auto) 5.5 Lymphocytes # (Auto) 1.6 Monocytes # (Auto) 0.6 Eosinophils # (Auto) 0.0 Basophils # (Auto) 0.1 CBC Comment AUTO DIFF Differential Comment AUTO DIFF CONFIRMED Platelet Estimate HIGH Platelet Morphology Comment NORMAL Ovalocytes 2+ Sodium Level 135 Potassium Level 3.6 Chloride Level 102 Carbon Dioxide Level 23.7 Anion Gap 9 Blood Urea Nitrogen 5 Creatinine 0.92 Estimat Glomerular Filtration 85 Rate Random Glucose 82 Calcium Level 9.4 Iron Level 154 Total Iron Binding Capacity 715 Percent Iron Saturation 21.5 Ferritin 16 Triglycerides Level 109 Cholesterol Level 172 LDL Cholesterol 86 HDL Cholesterol 64.7 Cholesterol/HDL Ratio 2.65 Whit Asencio MD Jan 15, 2017 19:32
[2017-01-15] MEDS: ATORVASTATIN 20 MG TAB PO SCH (21:16)
--- NOTE | 2017-01-15 23:03 | MB ---
cc: CHARLEEN HASKINS M.D. DATE OF CONSULTATION 01/15/17 DATE OF [address] Dixon CHIEF COMPLAINT Dr. Dixon requested consultation for Mrs. Lorenzo with transfusion requiring anemia admitted with acute CVA. HISTORY OF PRESENT ILLNESS Mrs. Lorenzo is a 32-year-old woman with history of anemia. She has required transfusions in the past, particularly prior to delivery. She has had four C-sections and required four transfusions. She is in her usual state of health. She apparently was in the bathroom and felt her left leg go weak and give out on it and at the same time her right side became weak all of a sudden. She fell. She was accompanied by her 6-year-old who alerted her who brought her into the hospital right away. She describes having a mild aching headache. No visual change. She was aware of what is going on. She was attempting to speak and thought that her speech was fluent albeit slurred to everyone around her who heard her. She was evaluated by Dr. Stephen Chaparro in the emergency room and Dr. Asencio. Imaging study included CT scan of the head that was negative for acute process. She was ideal candidate for thrombolytic therapy. She underwent thrombolytic therapy. She had a gradual recovery of her speech and strength of her right side. She was monitored in the ICU by Dr. Dixon. After recovery she was transferred to a regular medical floor. Review of her workup shows MRA that was negative. The cranial vessels are all patent. MRA of the brain was negative. MRI of the brain showed two small separate areas of focal left frontal cortical stroke. In the high convexity posterior left frontal cortex and in the low convexity left orbital frontal cortex. There is no evidence of intracranial hemorrhage. Followup CT was stable and unremarkable on January 15. Mrs. Lorenzo is resting. She denies any fevers, chills or night sweats. She has no weight loss. She has known of her anemia for a long time and does not know the etiology. She denies any prior knowledge of thalassemia. She is able to ambulate. She gives a history of intermittent numbness below the waist. It would come on while walking or resting. It has resolved spontaneously in the past. We reviewed her labs. She is noted to have significant anemia dating back to 2003 with a hemoglobin of 7.7. Her MCV is low in the 60s. Her platelet count have been normal except for during this admission where her platelet count is 753,000. Blood bank shows a transfusion history of 3 units of packed red cells in 2008. She reports other transfusions before delivery from her other pregnancies. The rest of her review of systems is negative. PAST MEDICAL HISTORY 1. Chronic anemia. 2. Thrombocytosis. 3. CVA. PAST SURGICAL HISTORY delivery times four. FAMILY HISTORY Mother in her 60s history of stroke. SOCIAL HISTORY She denies any tobacco, alcohol or illicit drug use. She is , lives with her and her kids. Her oldest step son is 19, younger son is 6. PHYSICAL EXAMINATION VITAL SIGNS: Temperature 98.2, heart rate 97, respiratory rate 16, blood pressure 124/55, saturation 98%. GENERAL: Mrs. Lorenzo is a well-developed, well-nourished pleasant woman in no acute distress. HEENT: Her pupils are round, reactive to light and accommodation. Conjunctiva is pink. Oropharynx is clear. NECK: Supple with no adenopathy. LUNGS: Clear to auscultation. CARDIOVASCULAR: Exam reveals normal rate, rhythm. ABDOMEN: Benign. EXTREMITIES: Lower extremities with no edema. NEUROLOGICAL: Exam is nonfocal. There is some subjective numbness in the right arm. Her strength and mobility is normal. LABORATORY DATA Significant for hemoglobin 10.5 post transfusion. Platelet count 743, MCV is normal. Chemistry BUN, creatinine are normal. Ferritin is 16, saturation is 21, TIBC is elevated at 715. Serum iron 154. ASSESSMENT/PLAN Mrs. Lorenzo is a 32-year-old woman with no significant past history except for chronic anemia and transfusion requiring during . She presents with acute stroke. MRI finding show two small separate areas of focal left frontal cortical stroke. She underwent thrombolytic therapy and has recovered her neurological function. Hematology/Oncology is consulted for the microcytic anemia and reactive thrombocytosis. I discussed at length with Mrs. Lorenzo and her present at the consultation her anemia which is longstanding. She has tolerated this anemia well, except during pregnancies. She has a microcytic picture that is consistent with thalassemia. We discussed obtaining a hemoglobin electrophoresis. Peripheral smear from January 17, 2009 shows severe hypochromic microcytic anemia consistent with iron deficiency. The low ferritin of 16 is consistent with iron deficiency. She continues to have regular menstruation. I am unable to exclude iron deficiency as the cause of her microcytic anemia and reactive thrombocytosis. We discussed the findings of elevated platelet count. This is a new phenomenon since January of 2017. We discussed differential to include essential thrombocythemia which is at increased risk for arterial and venous thromboembolic event. Neurology is following the patient and thrombophilia evaluation is being coordinated. Workup is still pending. We discussed plans to follow her and continue our workup on an outpatient basis when she is discharged. We will follow her hemoglobin in the morning. We anticipate treating her with parenteral iron therapy in clinic to correct an iron deficiency and determine if he if correcting that would correct the anemia and microcytosis and thrombocythemia. MD SIDRA Brumfield/EO /8:50 PM /10:38 PM
[2017-01-16] VITALS (7 sets, daily range): BP systolic 119–133; BP diastolic 63–79; PULSE 68–105; RESP 17–20; TEMP 98.5–99.1; O2SAT 99–100
[2017-01-16] MEDS: CHLORHEXIDINE GLUCONATE 2 % 1 PACK (2 CLOTHS) TOP SCH (01:40)
[2017-01-16] MEDS: DOCUSATE SODIUM 50 MG/SENNA 8.6 MG TAB PO SCH ×2 (08:57→20:44)
[2017-01-16] MEDS: ASPIRIN 325 MG TAB PO SCH (08:57)
--- NOTE | 2017-01-16 09:58 | PD.ONC.PN ---
Subjective Subjective Remarks Afebrile overnight. Patient resting in bed in nad. No complaints. Objective Data Date Time Temp Pulse Resp B/P Pulse Ox O2 Delivery O2 Flow Rate FiO2 01/16/17 09:45 99 21 01/16/17 08:46 99.1 105 17 131/63 100 01/16/17 05:00 98.6 82 17 120/72 100 01/16/17 00:30 98.7 80 17 128/67 99 01/15/17 20:30 99.0 89 17 132/77 100 01/15/17 17:45 98 21 01/15/17 16:00 98.2 97 16 124/55 98 01/15/17 12:20 98.2 77 16 159/66 100 01/15/17 10:00 80 Result Diagram: 01/15/17 1341 01/15/17 1341 Laboratory Results Laboratory Tests Test 01/15/17 13:41 White Blood Count 7.8 TH/MM3 Red Blood Count 5.16 MIL/MM3 Hemoglobin 10.5 GM/DL Hematocrit 34.0 % Mean Corpuscular Volume 66.0 FL Mean Corpuscular Hemoglobin 20.4 PG Mean Corpuscular Hemoglobin 31.0 % Concent Red Cell Distribution Width 31.2 % Platelet Count 743 TH/MM3 Mean Platelet Volume 8.1 FL Neutrophils (%) (Auto) 70.8 % Lymphocytes (%) (Auto) 19.9 % Monocytes (%) (Auto) 8.2 % Eosinophils (%) (Auto) 0.5 % Basophils (%) (Auto) 0.6 % Neutrophils # (Auto) 5.5 TH/MM3 Lymphocytes # (Auto) 1.6 TH/MM3 Monocytes # (Auto) 0.6 TH/MM3 Eosinophils # (Auto) 0.0 TH/MM3 Basophils # (Auto) 0.1 TH/MM3 CBC Comment AUTO DIFF Differential Comment AUTO DIFF CONFIRMED Platelet Estimate HIGH Platelet Morphology Comment NORMAL Ovalocytes 2+ Sodium Level 135 MEQ/L Potassium Level 3.6 MEQ/L Chloride Level 102 MEQ/L Carbon Dioxide Level 23.7 MEQ/L Anion Gap 9 MEQ/L Blood Urea Nitrogen 5 MG/DL Creatinine 0.92 MG/DL Estimat Glomerular Filtration 85 ML/MIN Rate Random Glucose 82 MG/DL Calcium Level 9.4 MG/DL Iron Level 154 MCG/DL Total Iron Binding Capacity 715 MCG/DL Percent Iron Saturation 21.5 % Ferritin 16 NG/ML Triglycerides Level 109 MG/DL Cholesterol Level 172 MG/DL LDL Cholesterol 86 MG/DL HDL Cholesterol 64.7 MG/DL Cholesterol/HDL Ratio 2.65 RATIO Administered Medications Medications (Trade) Dose Ordered Sig/Elio Route PRN Reason Start Time Stop Time Status Last Admin Dose Admin Chlorhexidine Gluconate (Chlorhexidine 2% Cloth) 3 pack Taper DAILY@04 TOP 01/15/17 04:00 01/11/18 03:59 01/15/17 03:46 Aspirin (Aspirin) 325 mg DAILY PO 01/15/17 10:34 01/16/17 08:57 Atorvastatin Calcium (Lipitor) 20 mg HS PO 01/15/17 21:00 01/15/17 21:16 Objective Remarks GENERAL: Young woman, sitting up in bed eating breakfast in nad. SKIN: Warm and dry. HEAD: Normocephalic. EYES: No injection or drainage. NECK: Supple, trachea midline. CARDIOVASCULAR: Regular rate and rhythm RESPIRATORY: Breath sounds equal bilaterally. No accessory muscle use. GASTROINTESTINAL: Abdomen soft, non-tender, nondistended. EXTREMITIES: No cyanosis NEUROLOGICAL: awake and alert, normal speech. moving all extremities. Assessment/Plan Problem List: (1) Acute CVA (cerebrovascular accident) Status: Acute Plan: --s/p thrombolytic therapy. --had a gradual recovery of her speech and strength of her right side. --MRI of the brain showed two small separate areas of focal left frontal cortical stroke. --Followup CT was stable and unremarkable on January 15. (2) Microcytic anemia Status: Acute Plan: --will order IV iron --has a microcytic picture that is consistent with thalassemia. --hemoglobin electrophoresis pending --Peripheral smear from January 17, 2009 shows severe hypochromic microcytic anemia consistent with iron deficiency. (3) Thrombocytosis Status: Acute Plan: --differential includes essential thrombocythemia which causes increased risk for arterial and venous thromboembolic event. --Neurology is following the patient and thrombophilia evaluation is being coordinated. Workup is still pending. --will plan on outpatient follow up to continue workup. Assessment 32y/o female admitted with acute CVA. Hematology consulted for anemia. h/o Chronic anemia. Thrombocytosis. CVA. Plan 1. will give IV iron 2. monitor CBC 3. fs faxed to new patient referrals for follow up. Venus Veliz Jan 16, 2017 09:58
[2017-01-16 10:56] LABS: HEMATOCRIT 32.7 % (35.0-46.0); MEAN CORPUSCULAR HEMOGLOBIN 20.3 PG (27.0-34.0); MEAN CORPUSCULAR HGB CONC 30.8 % (32.0-36.0); PLATELET COUNT 694 TH/MM3 (150-450); RED BLOOD COUNT 4.96 MIL/MM3 (4.00-5.30); RED CELL DISTRIBUTION WIDTH 30.8 % (11.6-17.2); WHITE BLOOD COUNT 6.2 TH/MM3 (4.0-11.0)
[2017-01-16 10:59] LABS: REVIEW FLAG FINAL
[2017-01-16 11:18] LABS: BICARBONATE 25.9 MEQ/L (21.0-32.0); POTASSIUM 3.5 MEQ/L (3.5-5.1)
[2017-01-16] MEDS: IRON SUCROSE INJ 100 MG in SODIUM CHLORIDE 0.9% INJ 100 ML IV SCH (11:34)
--- NOTE | 2017-01-16 11:34 | HHI.PR ---
Subjective Remarks Follow-up for CVA Patient stated that she is back to her baseline. She has no deficit at the moment. Patient very anxious to go home. Her is at the bedside. Per nurse events. Dealt with patient's nurse. Objective Vitals Vital Signs Date Time Temp Pulse Resp B/P Pulse Ox O2 Delivery O2 Flow Rate FiO2 01/16/17 09:45 99 21 01/16/17 08:46 99.1 105 17 131/63 100 01/16/17 05:00 98.6 82 17 120/72 100 01/16/17 00:30 98.7 80 17 128/67 99 01/15/17 20:30 99.0 89 17 132/77 100 01/15/17 17:45 98 21 01/15/17 16:00 98.2 97 16 124/55 98 01/15/17 12:20 98.2 77 16 159/66 100 I/O 01/15/17 01/15/17 01/15/17 01/16/17 01/16/17 01/16/17 06:59 14:59 22:59 06:59 14:59 22:59 Intake Total 626 ml 480 ml Output Total 425 ml Balance 201 ml 480 ml Intake Oral 120 ml 480 ml IV Total 506 ml Output Urine Total 425 ml # Voids 6 Result Diagram: 01/16/1792601/16/17926 Imaging Last Impressions Head CT 01/15/17929 Signed Impressions: Service Date/Time: Sunday, January 15, 2017 09:32 - CONCLUSION: Stable, unremarkable brain CT appearance Librado Reza MD Neck Magnetic Resonance Angiography 01/14/17839 Signed Impressions: Service Date/Time: Saturday, January 14, 2017 11:31 - CONCLUSION: Negative exam. Cervical vessels are all patent. Ramone Peterson MD Head Magnetic Resonance Angiography 01/14/17839 Signed Impressions: Service Date/Time: Saturday, January 14, 2017 11:31 - CONCLUSION: Negative exam. Ramone Peterson MD Brain MRI 01/14/17839 Signed Impressions: Service Date/Time: Saturday, January 14, 2017 11:31 - CONCLUSION: 2 small separate areas of focal left frontal cortical stroke.. Librado Reza MD Neck CTA 01/14/17 0000 Signed Impressions: Service Date/Time: Saturday, January 14, 2017 08:36 - CONCLUSION: Tiny abnormality involving the posterior wall of the proximal left internal carotid artery as above. Otherwise normal. Librado Reza MD Head CTA 01/14/17 0000 Signed Impressions: Service Date/Time: Saturday, January 14, 2017 08:36 - CONCLUSION: Normal examination. Librado Reza MD Chest X-Ray 01/14/17 0000 Signed Impressions: Service Date/Time: Saturday, January 14, 2017 08:41 - CONCLUSION: No acute disease. Librado Reza MD Objective Remarks GENERAL: in NAD SKIN: Warm and dry. HEAD: Normocephalic. EYES: No scleral icterus. No injection or drainage. EOMI. NECK: Supple, trachea midline. No JVD or lymphadenopathy. CARDIOVASCULAR: Regular rate and rhythm without murmurs, gallops, or rubs. RESPIRATORY: Breath sounds equal bilaterally. No accessory muscle use. GASTROINTESTINAL: Abdomen soft, non-tender, nondistended. NEURO: AAO X3. CN 2-12 intact. 5 out of 5 lower and upper extremity strength. Coordination is intact. Speech is also intact. Medications and IVs Current Medications Sodium Chloride (NS 1000 ml Inj) 1,000 ml @ 70 mls/hr [id number] ONCE IV ; Start 01/14/17 at 08:28; Stop 01/14/17 at 09:40; Status DC Alteplase, Recombinant 5.7 mg 5.7 mg ONCE ONCE IV Last administered on 09:39; Start 01/14/17 at 09:00; Stop 01/14/17 at 09:01; Status DC Alteplase, Recombinant/ Syringe / Bag (Activase Drip/ Syringe/Bag) 50.9999 ml @ 51 mls/hr ONCE ONCE IV Last administered on 01/14/17 09:39; Start 01/14/17 at 09:00; Stop 01/14/17 at 09:59; Status DC Sodium Chloride (NS Inj) 30 ml ONCE ONCE IVF Last administered on 01/14/17 10: 39; Start 01/14/17 at 09:00; Stop 01/14/17 at 09:01; Status DC Miscellaneous Information No Heparin, Warfarin, Aspir... UNSCH PRN XX SEE DOSE INSTRUCTIONS; Start 01/14/17 at 09:00; Stop 01/15/17 at 08:59; Status DC Iohexol (Omnipaque 350 Inj) 100 ml STK-MED ONCE IV Last administered on t 08:53; Start 01/14/17 at 08:53; Stop 01/14/17 at 08:54; Status DC Magnesium Oxide 800 mg 800 mg UNSCH PRN PO For Magnesium 1.2 - 1.6 mg/dL; Start 01/14/17 at 09:15; Stop 01/15/17 at 13:35; Status DC Magnesium Sulfate 4 gm/Sodium Chloride 100 ml @ 50 mls/hr UNSCH PRN IV For Magnesium 0.9 - 1.1 mg/dL; Start 01/14/17 at 09:15; Stop 01/15/17 at 13:35; Status DC Magnesium Sulfate 2 gm/Sodium Chloride 100 ml @ 50 mls/hr UNSCH PRN IV For Magnesium 1.2 - 1.6 mg/dL; Start 01/14/17 at 09:15; Stop 01/15/17 at 13:35; Status DC Potassium Chloride 100 ml @ 50 mls/hr Q2H PRN IV For Potassium 2.8 - 3.2 mEq/L ; Start 01/14/17 at 09:15; Stop 01/15/17 at 13:35; Status DC Potassium Chloride 100 ml @ 50 mls/hr Q2H PRN IV For Potassium 3.3 - 3.5 mEq/L ; Start 01/14/17 at 09:15; Stop 01/15/17 at 13:35; Status DC Potassium Chloride 100 ml @ 50 mls/hr Q2H PRN IV For Potassium 2.8 - 3.2 mEq/L ; Start 01/14/17 at 09:15; Stop 01/15/17 at 13:35; Status DC Potassium Chloride (KCl 40 Meq Premix Inj) 100 ml @ 25 mls/hr UNSCH PRN IV For Potassium 3.3 - 3.5 mEq/L; Start 01/14/17 at 09:15; Stop 01/15/17 at 13:35; Status DC Potassium Phosphate (K-Phos) 2,000 mg Q4H PRN PO For Phosphorus < 2.5 mg/dL; Start 01/14/17 at 09:15; Stop 01/15/17 at 13:35; Status DC Potassium Phosphate 2000 mg 2,000 mg UNSCH PRN PO/TUBE SEE LABEL COMMENTS; Start 01/14/17 at 09:15; Stop 01/15/17 at 13:35; Status DC Potassium Phosphate 30 mmol/ Sodium Chloride 260 ml @ 42 mls/hr UNSCH PRN IV SEE LABEL COMMENTS; Start 01/14/17 at 09:15; Stop 01/15/17 at 13:35; Status DC Sodium Phosphate/ Sodium Chloride (Sodium Phosphate Inj/NS 250 ml Inj) 250 ml @ 42 mls/hr UNSCH PRN IV For Phosphorus < 2.5 mg/dL; Start 01/14/17 at 09:15; Stop 01/15/17 at 13:35; Status DC Dextrose (D50w (Vial) Inj) 25 ml UNSCH PRN IV PUSH HYPOGLYCEMIA-SEE COMMENTS; Start 01/14/17 at 09:15; Stop 01/15/17 at 16:59; Status DC Insulin Human Regular 1 1 ACHS AND 3AM SQ ; Start 01/14/17 at 11:00; Stop at 16:59; Status DC Sodium Chloride (NS 1000 ml Inj) 1,000 ml @ 84 mls/hr [id number] IV Last administered on 01/14/17 12:30; Start 01/14/17 at 10:00; Stop 01/15/17 at 10:36; Status DC Acetaminophen (Tylenol) 650 mg Q6H PRN PO PAIN 1-10 AND/OR FEVER >101F; Start 01/14/17 at 09:15 Ondansetron HCl (Zofran Inj) 4 mg Q6H PRN IV NAUSEA OR VOMITING; Start 01/14/17 at 09:15 Miscellaneous Information 1 [id number] ; Start 01/14/17 at 09:15 Chlorhexidine Gluconate (Chlorhexidine 2% Cloth) 3 pack Taper DAILY@04 TOP Last administered on 01/15/17 03:46; Start 01/15/17 at 04:00; Stop 01/11/18 at 03: 59 Chlorhexidine Gluconate (Chlorhexidine 2% Cloth) 3 pack UNSCH PRN TOP HYGIENIC CARE; Start 01/14/17 at 09:15 Senna/Docusate Sodium (Zuleyma-Colace) 1 tab BID PO ; Start 01/14/17 at 21:00 Gadodiamide (Omniscan Pf Inj) 20 ml STK-MED ONCE IV Last administered on 13:06; Start 01/14/17 at 13:06; Stop 01/14/17 at 13:07; Status DC Aspirin (Aspirin) 325 mg DAILY PO Last administered on 01/16/17 08:57; Start at 10:34 Atorvastatin Calcium 20 mg 20 mg HS PO Last administered on 01/15/17 21:16; Start 01/15/17 at 21:00 Iron Sucrose/ Sodium Chloride (Venofer Inj/NS Inj) 105 ml @ 105 mls/hr DAILY IV ; Start 01/16/17 at 10:00; Stop 01/18/17 at 09:59 A/P Assessment and Plan Assessment: 32-year-old female with right-sided weakness and facial droop concerning for CVA, now s/p TPA. symptoms have resolved. stable x 24h. will transfer out of ICU with hospitalist service following. Acute CVA, symptoms resolved. No deficits. -That is post TPA. -MRI showed 2 small separate areas of focal left frontal cortical stroke. -Post CT scan negative. -- 24h post ct head: negative. 2-D echo showed ejection fraction of 50-55%. Otherwise relatively normal. LDL is 86 -- Neurologist following. Patients on atorvastatin and aspirin. Neurologist stated patient can follow-up with him or her hyper collectible workup. He also recommended long-term monitoring of her heart vs loop loop recorder. Will consult stained glass glazier helper in regards to this. Anemia- chronic, unknown type. -- s/p 2 units prbc with appropriate response. --Well Service Floorperson consulted. Per browning processor this is more chronic. Patient had previous workup. Most likely secondary to iron deficiency anemia. She is getting IV iron. -Per browning processor patient can follow-up with them as outpatient. Thrombocytosis -Well Service Floorperson is ff. Discharge Planning Manager Operating consulted for possible long-term cardiac monitoring versus loop recorder. Sophie Mathis MD Jan 16, 2017 11:34
[2017-01-16] MEDS ORDERED: ASPI325T PO (15:47)
[2017-01-16] MEDS ORDERED: ATOR20TA15 PO (15:47)
--- NOTE | 2017-01-16 15:48 | MB ---
cc: KIKO OLGUIN DATE OF CONSULTATION 01/16/17 HISTORY OF PRESENT ILLNESS Mrs. Lorenzo is a 32-year-old black female with no previous cardiac history. She presented with slurred speech, right arm weakness and was given TPA with resolution of her symptoms. She has not had any chest pain or shortness of breath. PAST MEDICAL HISTORY Positive for anemia, requiring multiple transfusions. History of . No history of hypertension, dyslipidemia, diabetes mellitus, coronary artery disease or previous CVA. MEDICATIONS None at home. ALLERGIES None. SOCIAL HISTORY Patient is a smoker. She does not drink alcohol excessively. She is accompanied by her significant other. FAMILY HISTORY Positive for heart disease in her father. REVIEW OF SYSTEMS Otherwise negative. PHYSICAL EXAMINATION VITAL SIGNS: Blood pressure 119/74, pulse 68 regular. HEENT: Negative. 2+ carotid upstrokes. No bruits. LUNGS: Clear. HEART: Regular with no murmur, no gallop. ABDOMEN: Soft. No bruits. EXTREMITIES: Without edema. 2+ distal pulses. NEUROLOGIC: Grossly nonfocal. CARDIOLOGY STUDIES EKG was reviewed and showed normal sinus rhythm with normal axis and intervals. LABORATORY DATA Hemoglobin of 6.7, 7.4 and 10.1. Platelets 531, 743 and 694. Potassium 3.5, creatinine 0.7. CK and troponin normal. LDL 86, HDL 65. Echocardiogram showed preserved left ventricular systolic function with an ejection fraction of 50 to 55% with no ____ abnormalities, mild mitral regurgitation, trace aortic insufficiency, mild tricuspid regurgitation. DIAGNOSIS 1. CVA. 2. Chronic anemia. 3. Thrombocytosis. 4. Smoking. DISPOSITION Mrs. Lorenzo will be monitored on telemetry. There has been no evidence of atrial fibrillation. She is undergoing evaluation for her anemia and thrombocytosis. Recommend to continue current medical program including aspirin and atorvastatin. I will follow her for cardiology during her hospitalization. Kiko Olguin MD OQ/EO /2:59 PM /3:22 PM
--- NOTE | 2017-01-16 15:48 | HHI.DCPOC ---
Discharge Care Plan Diagnosis: (1) Acute CVA (cerebrovascular accident) (2) Thrombocytosis (3) Microcytic anemia Goals to Promote Your Health * To prevent worsening of your condition and complications * To maintain your health at the optimal level Directions to Meet Your Goals Take your medications as prescribed Follow your dietary instruction Follow activity as directed Keep your appointments as scheduled Take your immunizations and boosters as scheduled If your symptoms worsen call your PCP, if no PCP go to Urgent Care Center or Emergency Room Smoking is Dangerous to Your Health. Avoid second hand smoke Call the 24-hour hour crisis hotline for domestic abuse at Sophie Mathis MD Jan 16, 2017 15:48
[2017-01-16] MEDS: ATORVASTATIN 20 MG TAB PO SCH (20:44)
[2017-01-17 00:08] VITALS: BP 151/87; PULSE 78; RESP 18; TEMP 98.6; O2SAT 100
[2017-01-17] MEDS: CHLORHEXIDINE GLUCONATE 2 % 1 PACK (2 CLOTHS) TOP SCH (03:31)
[2017-01-17 04:28] VITALS: BP 131/87; PULSE 109; RESP 16; TEMP 99.4; O2SAT 98
[2017-01-17 07:34] VITALS: PULSE 69
[2017-01-17 08:42] VITALS: BP 127/72; PULSE 92; RESP 18; TEMP 98.3; O2SAT 99
[2017-01-17] MEDS: ASPIRIN 325 MG TAB PO SCH (09:41)
[2017-01-17] MEDS: IRON SUCROSE INJ 100 MG in SODIUM CHLORIDE 0.9% INJ 100 ML IV SCH (09:42)
[2017-01-17] MEDS: DOCUSATE SODIUM 50 MG/SENNA 8.6 MG TAB PO SCH (09:42)
--- NOTE | 2017-01-17 10:43 | PD.ONC.PN ---
Subjective Subjective Remarks Afebrile overnight. Patient resting in bed in [facility]. Eager to go home. No complaints. Objective Data Date Time Temp Pulse Resp B/P Pulse Ox O2 Delivery O2 Flow Rate FiO2 01/17/17 08:42 98.3 92 18 127/72 99 01/17/17 07:34 69 01/17/17 04:28 99.4 109 16 131/87 98 01/17/17 00:08 98.6 78 18 151/87 100 01/16/17 20:35 21 01/16/17 20:00 98.6 91 18 133/79 100 01/16/17 16:25 98.5 87 17 128/69 100 01/16/17 12:40 99.0 68 20 119/74 100 Result Diagram: 01/16/1792601/16/17926 Administered Medications Medications (Trade) Dose Ordered Sig/Elio Route PRN Reason Start Time Stop Time Status Last Admin Dose Admin Chlorhexidine Gluconate (Chlorhexidine 2% Cloth) 3 pack Taper DAILY@04 TOP 01/15/17 04:00 01/11/18 03:59 01/15/17 03:46 Senna/Docusate Sodium (Zuleyma-Colace) 1 tab BID PO 01/14/17 21:00 01/17/17 09:42 Aspirin (Aspirin) 325 mg DAILY PO 01/15/17 10:34 01/17/17 09:41 Atorvastatin Calcium 20 mg 20 mg HS PO 01/15/17 21:00 01/16/17 20:44 Iron Sucrose/ Sodium Chloride (Venofer Inj/NS Inj) 105 ml @ 105 mls/hr DAILY IV 01/16/17 10:00 01/18/17 09:59 01/17/17 09:42 Objective Remarks GENERAL: Young woman, upright in bed in [facility]. SKIN: Warm and dry. HEAD: Normocephalic. EYES: No injection or drainage. NECK: Supple, trachea midline. CARDIOVASCULAR: Regular rate and rhythm RESPIRATORY: Breath sounds equal bilaterally. No accessory muscle use. GASTROINTESTINAL: Abdomen soft, non-tender, nondistended. EXTREMITIES: No cyanosis NEUROLOGICAL: awake and alert, normal speech. moving all extremities. Assessment/Plan Problem List: (1) Acute CVA (cerebrovascular accident) Status: Acute Plan: --s/p thrombolytic therapy. --had a gradual recovery of her speech and strength of her right side. --MRI of the brain showed two small separate areas of focal left frontal cortical stroke. --Followup CT was stable and unremarkable on January 15. (2) Microcytic anemia Status: Acute Plan: --s/p IV iron. --has a microcytic picture that is consistent with thalassemia. --hemoglobin electrophoresis pending --Peripheral smear from January 17, 2009 shows severe hypochromic microcytic anemia consistent with iron deficiency. (3) Thrombocytosis Status: Acute Plan: --differential includes essential thrombocythemia which causes increased risk for arterial and venous thromboembolic event. --Neurology is following the patient and thrombophilia evaluation is being coordinated. Workup is still pending. --will plan on outpatient follow up to continue workup. Assessment 32y/o female admitted with acute CVA. Hematology consulted for anemia. h/o Chronic anemia. Thrombocytosis. CVA. Plan 1. continue IV iron 2. fs faxed to new patient referrals for follow up. 3. follow up with Dr. Reeves once discharged. Venus Veliz Jan 17, 2017 10:43
[2017-01-17 11:20] LABS: HEMATOCRIT 37.9 % (35.0-46.0); MEAN CELL VOLUME 67.3 FL (80.0-100.0); MEAN CORPUSCULAR HEMOGLOBIN 20.6 PG (27.0-34.0); MEAN CORPUSCULAR HGB CONC 30.5 % (32.0-36.0); PLATELET COUNT 818 TH/MM3 (150-450); RED BLOOD COUNT 5.63 MIL/MM3 (4.00-5.30); RED CELL DISTRIBUTION WIDTH 31.4 % (11.6-17.2); WHITE BLOOD COUNT 6.2 TH/MM3 (4.0-11.0)
[2017-01-17 11:29] LABS: REVIEW FLAG FINAL
[2017-01-17 11:48] LABS: BICARBONATE 25.7 MEQ/L (21.0-32.0); POTASSIUM 3.3 MEQ/L (3.5-5.1)
[2017-01-17 12:44] VITALS: BP 134/75; PULSE 89; RESP 16; TEMP 97.8; O2SAT 100
[2017-01-17 13:00] VITALS: O2SAT 97
--- NOTE | 2017-01-17 13:21 | HHI.DS ---
Discharge Summary Admission Date Jan 14, 2017 at 09:12 Admitting Diagnosis acute CVA Brief History - From Admission 32yF who presented with slurred speech and right arm weakness. within TPA window. seen and examined by neurology and given TPA. when I evaluated patient in ICU, no current complaints. weakness has resolved. ROS negative unless otherwise noted. does have history of anemia requiring multiple prior transfusions. CBC/BMP: 01/17/17 1029 01/17/17 1029 Significant Findings Laboratory Tests Test 01/14/17 01/14/17 01/15/17 01/15/17 13:49 17:14 07:33 13:41 Hemoglobin 6.7 GM/DL 7.4 GM/DL 10.5 GM/DL (11.6-15.3) (11.6-15.3) (11.6-15.3) Hematocrit 23.0 % 24.1 % 34.0 % (35.0-46.0) (35.0-46.0) (35.0-46.0) Phospholipid IgM Antibody 17.8 MPL (()) Red Blood Count 3.62 MIL/MM3 (4.00-5.30) Mean Corpuscular Volume 66.7 FL 66.0 FL (80.0-100.0) (80.0-100.0) Mean Corpuscular Hemoglobin 20.5 PG 20.4 PG (27.0-34.0) (27.0-34.0) Mean Corpuscular Hemoglobin 30.7 % 31.0 % Concent (32.0-36.0) (32.0-36.0) Red Cell Distribution Width 30.6 % 31.2 % (11.6-17.2) (11.6-17.2) Platelet Count 531 TH/MM3 743 TH/MM3 (150-450) (150-450) Neutrophils (%) (Auto) 70.8 % (16.0-70.0) Monocytes (%) (Auto) 8.2 % (0.0-8.0) Platelet Estimate HIGH (NORMAL) Ovalocytes 2+ (NORMAL) Sodium Level 135 MEQ/L (136-145) Blood Urea Nitrogen 5 MG/DL (7-18) Estimat Glomerular Filtration 85 ML/MIN (>89) Rate Total Iron Binding Capacity 715 MCG/DL (250-450) HDL Cholesterol 64.7 MG/DL (40.0-60.0) Test 01/16/17 01/17/17 09:27 10:29 Hemoglobin 10.1 GM/DL (11.6-15.3) Hematocrit 32.7 % (35.0-46.0) Mean Corpuscular Volume 66.0 FL 67.3 FL (80.0-100.0) (80.0-100.0) Mean Corpuscular Hemoglobin 20.3 PG 20.6 PG (27.0-34.0) (27.0-34.0) Mean Corpuscular Hemoglobin 30.8 % 30.5 % Concent (32.0-36.0) (32.0-36.0) Red Cell Distribution Width 30.8 % 31.4 % (11.6-17.2) (11.6-17.2) Platelet Count 694 TH/MM3 818 TH/MM3 (150-450) (150-450) Blood Urea Nitrogen 6 MG/DL (7-18) 6 MG/DL (7-18) Red Blood Count 5.63 MIL/MM3 (4.00-5.30) Sodium Level 135 MEQ/L (136-145) Potassium Level 3.3 MEQ/L (3.5-5.1) PE at Discharge GENERAL: in NAD SKIN: Warm and dry. HEAD: Normocephalic. EYES: No scleral icterus. No injection or drainage. EOMI. NECK: Supple, trachea midline. No JVD or lymphadenopathy. CARDIOVASCULAR: Regular rate and rhythm without murmurs, gallops, or rubs. RESPIRATORY: Breath sounds equal bilaterally. No accessory muscle use. GASTROINTESTINAL: Abdomen soft, non-tender, nondistended. NEURO: AAO X3. CN 2-12 intact. 5 out of 5 lower and upper extremity strength. Coordination is intact. Speech is also intact. Pt Condition on Discharge: Good Discharge Disposition: Discharge Home Discharge Instructions DIET: Follow Instructions for: Heart Healthy Diet Activities you can perform: Regular-No Restrictions Sophie Mathis MD Jan 17, 2017 13:21
--- NOTE | 2017-01-17 13:57 | PD.CARD.PN ---
Subjective Subjective Remarks No CP, SOB, or neuro deficits Objective Medications Current Medications Medications (Trade) Dose Ordered Sig/Elio Route Start Time Stop Time Status Last Admin (Tylenol) 650 mg Q6H PRN PO 01/14/17 09:15 (Zofran Inj) 4 mg Q6H PRN IV 01/14/17 09:15 Miscellaneous Information 1 [id number] XX 01/14/17 09:15 (Chlorhexidine 2% Cloth) 3 pack Taper DAILY@04 TOP 01/15/17 04:00 01/11/18 03:59 01/15/17 03:46 (Chlorhexidine 2% Cloth) 3 pack UNSCH PRN TOP 01/14/17 09:15 (Zuleyma-Colace) 1 tab BID PO 01/14/17 21:00 01/17/17 09:42 (Aspirin) 325 mg DAILY PO 01/15/17 10:34 01/17/17 09:41 Atorvastatin Calcium 20 mg 20 mg HS PO 01/15/17 21:00 01/16/17 20:44 (Venofer Inj/NS Inj) 105 ml @ 105 mls/hr DAILY IV 01/16/17 10:00 01/18/17 09:59 01/17/17 09:42 Vital Signs / I&O Vital Signs Date Time Temp Pulse Resp B/P Pulse Ox O2 Delivery O2 Flow Rate FiO2 01/17/17 13:00 97 21 01/17/17 12:44 97.8 89 16 134/75 100 01/17/17 08:42 98.3 92 18 127/72 99 01/17/17 07:34 69 01/17/17 04:28 99.4 109 16 131/87 98 01/17/17 00:08 98.6 78 18 151/87 100 01/16/17 20:35 21 01/16/17 20:00 98.6 91 18 133/79 100 01/16/17 16:25 98.5 87 17 128/69 100 I/O 01/16/17 01/16/17 01/16/17 01/17/17 01/17/17 01/17/17 06:59 14:59 22:59 06:59 14:59 22:59 Intake Total 480 ml 360 ml Balance 480 ml 360 ml Intake Oral 480 ml 360 ml # Voids 6 2 # Bowel Movements 0 Physical Exam GENERAL: In NAD SKIN: Warm and dry. HEAD: Normocephalic. EYES: No scleral icterus. No injection or drainage. NECK: Supple, trachea midline. No JVD or lymphadenopathy. CARDIOVASCULAR: Regular rate and rhythm without murmurs, gallops, or rubs. RESPIRATORY: Breath sounds equal bilaterally. No accessory muscle use. GASTROINTESTINAL: Abdomen soft, non-tender, nondistended. MUSCULOSKELETAL: No cyanosis, or edema. Laboratory Laboratory Tests Test 01/17/17 10:29 White Blood Count 6.2 TH/MM3 Red Blood Count 5.63 MIL/MM3 Hemoglobin 11.6 GM/DL Hematocrit 37.9 % Mean Corpuscular Volume 67.3 FL Mean Corpuscular Hemoglobin 20.6 PG Mean Corpuscular Hemoglobin 30.5 % Concent Red Cell Distribution Width 31.4 % Platelet Count 818 TH/MM3 Mean Platelet Volume 7.5 FL Sodium Level 135 MEQ/L Potassium Level 3.3 MEQ/L Chloride Level 101 MEQ/L Carbon Dioxide Level 25.7 MEQ/L Anion Gap 8 MEQ/L Blood Urea Nitrogen 6 MG/DL Creatinine 0.82 MG/DL Estimat Glomerular Filtration 97 ML/MIN Rate Random Glucose 81 MG/DL Calcium Level 9.8 MG/DL Imaging Last Impressions Head CT 01/15/17929 Signed Impressions: Service Date/Time: Sunday, January 15, 2017 09:32 - CONCLUSION: Stable, unremarkable brain CT appearance Librado Reza MD Neck Magnetic Resonance Angiography 01/14/17 0840 Signed Impressions: Service Date/Time: Saturday, January 14, 2017 11:31 - CONCLUSION: Negative exam. Cervical vessels are all patent. Ramone Peterson MD Head Magnetic Resonance Angiography 01/14/1740 Signed Impressions: Service Date/Time: Saturday, January 14, 2017 11:31 - CONCLUSION: Negative exam. Ramone Peterson MD Brain MRI 01/14/1740 Signed Impressions: Service Date/Time: Saturday, January 14, 2017 11:31 - CONCLUSION: 2 small separate areas of focal left frontal cortical stroke.. Librado Reza MD Neck CTA 01/14/17 0000 Signed Impressions: Service Date/Time: Saturday, January 14, 2017 08:36 - CONCLUSION: Tiny abnormality involving the posterior wall of the proximal left internal carotid artery as above. Otherwise normal. Librado Reza MD Head CTA 01/14/17 0000 Signed Impressions: Service Date/Time: Saturday, January 14, 2017 08:36 - CONCLUSION: Normal examination. Librado Reza MD Chest X-Ray 01/14/17 0000 Signed Impressions: Service Date/Time: Saturday, January 14, 2017 08:41 - CONCLUSION: No acute disease. Librado Reza MD Assessment and Plan Problem List: (1) Acute CVA (cerebrovascular accident) (2) Thrombocytosis (3) Smoking Assessment and Plan No recurrent symptoms. Hematology eval in progress. Needs to quit smoking. No evidence of AF. OK to discharge home. Kiko Olguin MD Jan 17, 2017 13:57
[2017-01-18 03:51] LABS: PHOSPHATIDYLSERINE AB IGA LESS THAN 20.0 U/mL (()); THROMBIN TIME FOR LA ND sec (13-19)
== END 2017-01-17 14:50 | disposition home or self-care (01) | DRG 66 ==
LOC: NEPE 08:24 → NEDA 09:12 → N03B 12:05 → N05A 01-15 12:13
PROVIDERS: ADMIT Family Medicine; ATTEND Family Medicine
DX: I63.9 Cerebral infarction, unspecified (principal); D50.9 Iron deficiency anemia, unspecified; D56.9 Thalassemia, unspecified; F17.200 Nicotine dependence, unspecified, uncomplicated; D75.89 Other specified diseases of blood and blood-forming organs; F12.90 Cannabis use, unspecified, uncomplicated; R29.810 Facial weakness; W19.XXXA Unspecified fall, initial encounter; Y92.002 Bathroom of unspecified non-institutional (private) residence as the place of occurrence of the external cause; Z86.73 Personal history of transient ischemic attack (TIA), and cerebral infarction without residual deficits; R47.81 Slurred speech
CPT/HCPCS: 36430; 70450; 70496; 70498; 70544; 70548; 70551; 71010; 80048; 80061; 80307; 81001; 81240; 81241; 81291; 82435; 82550; 82565; 82728; 82947; 82948; 83020; 83090; 83540; 83550; 84132; 84295; 84484; 84520; 84702; 85014; 85018; 85025; 85027; 85240; 85300; 85303; 85306; 85307; 85384; 85610; 85613; 85730; 86146; 86147; 86148; 86850; 86900; 86901; 86920; 87641; 93005; 93306; 94150; 94667; A9579; J1756; J2997; J7030; P9016; Q9967